=== PATIENT | female | born 1995 | race Caucasian/White ===

== ENCOUNTER 2017-02-05 12:05 | Day surgery (SDC) | payer OTHER ==
--- NOTE | 2017-02-04 08:22 | PDGENHP ---
History and Physical History and Physical: Assessment and Plan: 1. Dysmenorrhea Josi's symptoms and exam findings are concerning for endometriosis. We reviewed all conservative and surgical options. She has failed medical management thus far. At the end of our discussion she is interested in laparoscopic evaluation with likely robotic excision of endometriosis. 2. Dyspareunia, female 3. Dyschezia Subjective: Patient ID: Josi White is a 21 y.o. female who [facility] to [facility] for pelvic pain. DARYL Prater is a 21-year-old para 0 woman who presents to discuss pelvic pain. She is using condoms for contraception. Her menses have always been painful since menarche. She was started on a control pill at the age of 13. She was diagnosed with premenstrual dysphoric disorder when she was younger. In 2012 she had a Inna IUD placed. This lightened her menstrual flow. Her pain also improved. However by 2015 her symptoms had returned. She was on a control pill after her IUD was removed but she has received no significant benefit. She has stopped all hormones and has been taking herbal remedies and acupuncture since July of this year. She feels slightly better. She also has changed her diet which has seemed to help. Over the last year her pain worsened. Previously it was only during her menses but now has become daily pain. She has missed so much work that she was fired from her job. She also misses a great deal of classes. She has vulvodynia. Additionally she has deep abdominal pain which feels like a twisting stabbing pain which is somewhat localized. Her cycles are regular with about a 5 day flow. She passes small clots. Again her pain has been more so on a daily basis. She has some deep dyspareunia. She also has deep dyschezia especially during her menses. She has no chest or shoulder pain. She has undergone an ultrasound and CT scan both of which were reportedly normal. She was evaluated by Dr. Lobo on November 22. He found vulvodynia with pelvic floor tenderness. The most severe areas of tenderness were the uterus and adnexa. He recommended waiting for treatment until after surgery with me. She lives in [place]. She is 1 credit away from completing her biology degree at [employer]. 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 PastMedicalHistory Past Medical History: Diagnosis Date Allergy to pollen Asthma Depression Anxiety Dermatologic disease Eczema Eczema Neurologic disorder Syncope Ovarian cyst STD (sexually transmitted disease) HPV Urinary tract infection PastSurgicalHistory Past Surgical History: Procedure Laterality Date COLONOSCOPY COLPOSCOPY UPPER GASTROINTESTINAL ENDOSCOPY WISDOM TOOTH EXTRACTION CURRENT MEDICATIONS: Current Outpatient Prescriptions Medication Sig albuterol HFA 90 mcg/actuation inhaler Inhale 1-2 puffs into the lungs every 4 hours as needed. cetirizine (ZYRTEC) 10 mg tablet Take 10 mg by mouth daily. Cyanocobalamin (VITAMIN B-12) 2,500 mcg Subl VINCENT PRIMROSE/LINOLEIC/GAMOLENI (PRIMROSE OIL PO) fluticasone (FLONASE) 50 mcg/actuation nasal spray Use 2 sprays in each nostril daily. LACTOBACILLUS ACIDOPHILUS (PROBIOTIC PO) OMEGA 9-GNL-KOS-VITAMIN D3 PO omega-3 acid ethyl esters, fish oil, (LOVAZA) 1 gram capsule Take 2 g by mouth 2 times daily. UNABLE TO FIND Med Name: "Roman Gupta" [place] [facility] UNABLE TO FIND Med Name: "Christie Joy" [place] Herb drospirenon-e.estradiol-lm.FA (COLTEN) 3-0.02-0.451 mg (24) (4) Tab Take 1 tablet by mouth daily. naproxen sodium (ANAPROX) 550 mg tablet Take 1 tablet by mouth 2 times daily (with meals) for Dysmenorrhea. (Patient not taking: Reported on 12/17/2016 ) progesterone micronized 100 mg cream Apply 50 mg topically 2 times daily. For HRT. traMADol (ULTRAM) 50 mg tablet Take 1 tablet by mouth every 8 hours as needed (pelvic pain) for Pain. (Patient not taking: Reported on 12/17/2016) triamcinolone (KENALOG) 0.1 % cream Apply topically 2 times daily for Atopic Dermatitis. (Patient not taking: Reported on 12/17/2016) No current facility-administered medications for this visit. ALLERGIES: Amoxicillin I have reviewed, verified and agree with the past medical, surgical, , family, social and ROS history as documented by the RN today. Objective: Vital Signs: Visit Vitals BP 110/72 Pulse 107 Temp 37 C (98.6 F) (Temporal Artery) Resp 16 Ht 1.715 m (5' 7.5") Wt 64.3 kg (141 lb 12.8 oz) SpO2 95% BMI 21.88 kg/m Physical Exam Gen: This is an alert, well developed woman in no distress. Neuro: She moves all extremities. Psych: She is appropriate, oriented, with normal affect. Neck: No thyroid enlargement, adenopathy, or tenderness. Lungs: Clear to ascultation, no wheezes or rales. Heart: Regular rate and rhythm without obvious murmurs. Abdomen: Soft, non-tender, without guarding, rebound, or masses. Extremities: No edema or cyanosis. Pelvic: Normal external genitalia. Non-gaping introitus. Tender vulva. Vagina without discharge, adequately estrogenized, no significant prolapse. Cervix without lesions or discharge. Uterus normal sized, reduced mobility, tender posteriorly with a small nodule on the lower uterine segment. Adnexa tender without enlargement, tender on the left. The cervix is tender. DATA: I have reviewed the pertinent medical records. PELVIC ULTRASOUND Indication: pelvic pain. Findings: The uterus is anterior and measures 8.2 x 3.9 x 5.5 cm. No obvious uterine abnormalities are seen. The endometrium measures 3 mm. The cervix appears to slide over the rectum. The right ovary measures 3.4 x 3.3 cm. The left ovary contains a simple cyst measuring 3.8 x 2.7 cm. Both ovaries appear to have reduced mobility. The left ovary is tender. Impression: Simple left ovarian cyst. Tender left ovary. Reduced mobility of both adnexa. Otherwise pelvic ultrasound is unremarkable anatomically. TIME/COMMUNICATION: I personally spent a total of 60 minutes. Of that 40 minutes was counseling/ coordination of patient's care. See my note above for details. Jonathon Palumbo MD Board Certified Female Pelvic Medicine and Reconstructive Surgery Director of Minimally Invasive Gynecologic Surgery, [facility] Surgeon in Minimally Invasive Gynecologic Surgery [facility] Surgeon in Robotic Surgery
[2017-02-05] MEDS ORDERED: LR 1,000 ML IV ONE (12:26)
[2017-02-05] MEDS ORDERED: ceFAZolin 2 GM/SWFI 2 GM/20 ML SYR IVP ONE (12:26)
[2017-02-05] MEDS ORDERED: GABAPENTIN 400 MG CAP PO ONE (12:26)
[2017-02-05] MEDS ORDERED: PHENAZOPYRIDINE HCL 200 MG TAB PO ONE (12:26)
[2017-02-05] MEDS ORDERED: ACETAMINOPHEN 500 MG TAB PO ONE (12:26)
[2017-02-05] MEDS ORDERED: LIDOCAINE 1% 2 ML INJ ID PRN (12:26)
--- NOTE | 2017-02-05 13:09 | PDHPUP ---
History & Physical Update H&P update statement: This history and physical update is based on an assessment of the patient which was completed after admission or registration (within 24 hours), but prior to the surgery/procedure. H&P update: H&P reviewed & patient examined, no change in patient's condition since H&P completed
[2017-02-05] MEDS ORDERED: MIDAZOLAM 2 MG/2 ML VIAL ONE (13:21)
[2017-02-05] MEDS ORDERED: PHENYLEPHRINE HCL 100 MCG/ML SYR ONE (13:21)
[2017-02-05] MEDS ORDERED: LIDOCAINE 2% 5 ML SDV ONE (13:21)
[2017-02-05] MEDS ORDERED: ROCURONIUM 50 MG/5 ML VIAL ONE (13:21)
[2017-02-05] MEDS ORDERED: ONDANSETRON 4 MG/2 ML VIAL ONE ×2 (13:21→17:54)
[2017-02-05] MEDS ORDERED: fentaNYL 250 MCG/5 ML INJ ONE (13:21)
[2017-02-05] MEDS ORDERED: DEXAMETHASONE 4 MG/ML VIAL ONE (13:21)
[2017-02-05] MEDS ORDERED: fentaNYL 100 MCG/2 ML INJ ONE ×2 (13:21→15:49)
[2017-02-05] MEDS ORDERED: PROPOFOL 200 MG/20 ML VIAL ONE (13:22)
[2017-02-05] MEDS ORDERED: BUPIVACAINE/EPI 0.5% 30 ML SDV ONE (13:22)
[2017-02-05] MEDS ORDERED: PROPOFOL/EMULSION 500 MG/50 ML BOTTLE IV ONE ×2 (13:22→14:32)
--- NOTE | 2017-02-05 13:30 | PDANEPAE ---
ANE History of Present Illness 21 year old for excision of endometriosis via robotic procedure. ANE Past Medical History - Cardiovascular History Hx Hypertension: No Hx Arrhythmias: No Hx Chest Pain: No Hx Coronary Artery / Peripheral Vascular Disease: No Hx CHF / Valvular Disease: No Hx Palpitations: No Cardiovascular History Comment: vaso-vagal syncope episodes -few per day since middle school. W/U by Dr Donaldson- [facility]. Palpitation w/sever cases. - Pulmonary History Hx COPD: No Hx Asthma/Reactive Airway Disease: Yes Hx Recent Upper Respiratory Infection: No Hx Oxygen in Use at Home: No Hx Sleep Apnea: No Sleep Apnea Screening Result - Last Documented: Negative Pulmonary History Comment: allergies- [facility]. Uses Albuterol PRN -cornell when exercising. - Neurologic History Hx Cerebrovascular Accident: No Hx Seizures: No Hx Dementia: No Neurologic History Comment: chronic H/A -occ migraine. - Endocrine History Hx Diabetes: No - Renal History Hx Renal Disorders: Yes Renal History Comment: frequency - Liver History Hx Hepatic Disorders: No - Neurological & Psychiatric Hx Hx Neurological and Psychiatric Disorders: No Neurological / Psychiatric History Comment: occ back pain due to posture. anxiety-has a service dog. - Cancer History Hx Cancer: No - Congenital Disorder History Hx Congenital Disorders: No - GI History Hx Gastrointestinal Disorders: No Gastrointestinal History Comment: Vegan, gluten and soy free diet. reflux 3 yrs ago- improved w/change in diet. - Other Health History Other Health History: Chronic pain in abd and pelvis. sx to R/O endometriosis. Hx of eczema-elbows,axilla - Chronic Pain History Chronic Pain: Yes (abd, pelvis,back,legs) - Surgical History Prior Surgeries: endoscopy/colonoscopy ANE Review of Systems Review of Systems: - Exercise capacity METS (RN): 4 METS ANE Patient History - Allergies Allergies/Adverse Reactions: No Allergies [NKDA] Allergy (Verified 02/04/17 14:10) - Home Medications Home Medications: Albuterol 02/04/17 [Last Taken 02/03/17] BENADRYL 02/04/17 [Last Taken 02/04/17] Cbd Turmeric 02/04/17 [Last Taken 02/05/17 09:00] Cetirizine 02/04/17 [Last Taken 02/04/17] Fluticasone Nasal 02/04/17 [Last Taken 02/04/17] Moxibustion 02/04/17 [Last Taken 02/04/17] - NPO status NPO Since - Liquids (Date): 02/04/17 NPO Since - Liquids (Time): 22:00 NPO Since - Solids (Date): 02/04/17 NPO Since - Solids (Time): 22:00 - Anes Hx Anes Hx: no prior problems - Smoking Hx Smoking Status: Never smoked ANE Labs/Vital Signs - Vital Signs Blood Pressure: 125/72 Heart Rate: 103 Respiratory Rate: 16 O2 Sat (%): 95 Height: 172.72 cm Weight: 64.41 kg ANE Physical Exam - Airway Mallampati Score: Class 1 Mouth exam: normal dental/mouth exam - ASA Status ASA Status: I
[2017-02-05] MEDS ORDERED: NALOXONE HCL 0.4 MG/ML INJ IVP PRN (14:15)
[2017-02-05] MEDS ORDERED: ONDANSETRON 4 MG/2 ML VIAL IVP PRN (14:15)
[2017-02-05] MEDS ORDERED: HYDROmorphONE/DILAUDID 1 MG/ML INJ IVP PRN (14:15)
[2017-02-05] MEDS ORDERED: PROMETHAZINE HCL 25 MG/ML INJ IVP PRN (14:15)
[2017-02-05] MEDS ORDERED: DEXAMETHASONE 4 MG/ML VIAL IVP PRN (14:15)
[2017-02-05] MEDS ORDERED: fentaNYL 100 MCG/2 ML INJ IVP PRN (14:15)
--- NOTE | 2017-02-05 14:17 | POSTANESTH ---
Post Anesthetic Evaluation Respiratory Status: Normal, Stable Level of Consciousness/Mental Status: Can Participate in Eval Pain Control: Adequate, Prn Tx Ordered Nausea/Vomiting Control: Adequate, Prn Tx Ordered
[2017-02-05] MEDS ORDERED: ESMOLOL HCL 100 MG/10 ML VIAL IV ONE (14:32)
[2017-02-05] MEDS ORDERED: SUGAMMADEX SODIUM 200 MG/2 ML VIAL IVP ONE (14:42)
[2017-02-05] MEDS ORDERED: KETOROLAC 30 MG/1 ML SDV ONE (15:11)
[2017-02-05] MEDS ORDERED: KETOROLAC 30 MG/1 ML SDV IVP ONE (15:13)
--- NOTE | 2017-02-05 16:15 | POSTOPPROG ---
Post Op Note Date of Operation: 02/05/17 Surgeon: Jonathon Palumbo Sock And Stocking Ironer: Lola Danielle Anesthesia: GET(General Endotracheal) Pre-op Diagnosis: Pelvic pain Post-op Diagnosis: Same plus endometriosis Procedure: Robotic excision of endometriosis, ureterolysis, ovarianpexy Findings: endometriosis Inf/Abcess present in the surg proc area at time of surgery?: No EBL: Minimal Complications: None
[2017-02-05 16:21] VITALS: TEMP 98.4
[2017-02-05 16:33] VITALS: PULSE 86
[2017-02-05 16:40] VITALS: O2SAT 96
[2017-02-05 17:21] VITALS: BP 108/69; RESP 13
--- NOTE | 2017-02-06 01:03 | GOP ---
[f rep st] OPERATIVE REPORT DATE OF OPERATION: 02/05/2017 SURGEON: Jonathon Palumbo MD PLASTERER STUCCO: Lola Danielle CFA. ANESTHESIA: General. PREOPERATIVE DIAGNOSIS: 1. Pelvic pain. 2. Probable endometriosis. 3. Hemorrhagic right ovarian cyst. POSTOPERATIVE DIAGNOSIS: 1. Pelvic pain. 2. Probable endometriosis. 3. Hemorrhagic right ovarian cyst. PROCEDURE PERFORMED: 1. Robotic excision of endometriosis, bilateral ovarian fossa, and posterior cervix. 2. Bilateral uretero lateral ovariopexy. 3. Right ovarian cystectomy. FINDINGS: SPECIMENS: Pelvic peritoneum with endometriosis. ESTIMATED BLOOD LOSS: Scant. DESCRIPTION OF PROCEDURE: The patient was taken to the operating room where she was identified. Gen eral anesthesia was administered and found to be adequate. She was placed in the lithotomy position and prepared and draped in normal sterile fashion. A Atwood catheter was placed in her bladder. A Hu lka tenaculum was placed for uterine manipulation. A 1 cm infraumbilical incision was made with a scalpel. The Veress needle with the CO2 gas flowing w as advanced into the peritoneal cavity. The abdomen was then insufflated with carbon dioxide gas. T he 12 mm trocar followed by the laparoscope were then inserted. The upper abdomen was unremarkable. There was no evidence of any endometriosis on either diaphragm, stomach, liver, gallbladder, or uppe r abdominal bowel. Two lateral ports were placed in the right and one on the left under direct visua lization. She then was placed in Trendelenburg position, and the da Tania robot docked on the left s zackery. Instruments were then brought into the abdominal cavity under direct visualization. Within the pelvis, endometriosis consisting of white and sandoval superficial lesions were noted in both ovarian fos mayra. There was a peritoneal window at the level of the cervix and retraction in the right ovarian fo ssa. These areas were completely excised. This required a bilateral ureterolysis. The peritoneum o f the pelvic brim was incised. The ureters were gently dissected free and lateralized down to where they crossed underneath the uterine arteries. Once this accomplished, the overlying peritoneum with endometriosis was completely excised. A bilateral ovariopexy was also performed by attaching each ov kemar to the ipsilateral round ligaments near the internal inguinal ring. She was noted to have a hemo rrhagic cyst of the right ovary. This was excised and sent to Pathology. The pelvis was then copiously irrigated with sterile saline. Hemostasis was present. The robot was then undocked. The fascia was closed with 0 Vicryl, the skin with 4-0 Monocryl and surgical adhesive . Anesthesia was reversed and the patient taken to the PACU awake, in stable condition. COMPLICATIONS: None. DISPOSITION: Patient stable to PACU. /[id number]/MODL
== END 2017-02-05 18:17 | disposition home or self-care (01) ==
LOC: FSGY 12:05 → EDBD 13:30 → FSGY 18:17
PROVIDERS: ATTEND Obstetrics & Gynecology
DX: N80.1 Endometriosis of ovary (principal); N83.202 Unspecified ovarian cyst, left side; N94.10 Unspecified dyspareunia; R55 Syncope and collapse; R06.02 Shortness of breath; K59.00 Constipation, unspecified; F41.9 Anxiety disorder, unspecified; L30.9 Dermatitis, unspecified; B00.9 Herpesviral infection, unspecified
CPT/HCPCS: J0690; J1100; J1885; J2250; J2370; J2405; J2704; J3010